=== PATIENT | female | born 1945 | race Hispanic/Latino ===

== ENCOUNTER 2018-12-07 10:38 | Outpatient (CLI) | payer MEDICARE ==
--- NOTE | 2018-12-07 11:10 | XRay Report ---
ABDOMEN 1 VIEW(S) INDICATION / CLINICAL INFORMATION: ABDOMINAL PAIN, ACUTE. COMPARISON: Abdomen series from 07/08/2008 FINDINGS: TUBES / LINES: None. BOWEL GAS PATTERN: No significant abnormality. FREE AIR / EXTRALUMINAL GAS: None seen. ADDITIONAL FINDINGS: Prior cholecystectomy noted. IMPRESSION: 1. No significant abnormality. Signer Name: Scott Bergeron MD Signed: 12/07/2018 11:06 AM Workstation Name: [id number]
== END 2018-12-07 10:39 | disposition home or self-care (01) ==
LOC: SPVIMAG 10:38
PROVIDERS: ATTEND Internal Medicine
DX: R10.9 Unspecified abdominal pain (principal)
CPT/HCPCS: 74018